=== PATIENT | male | born 1955 | race Caucasian/White ===

== ENCOUNTER → 2021-02-16 12:31 | Outpatient (REF) | payer BC, SELFPAY | LOC: ANHLAB 12:31 | PROVIDERS: PCP Internal Medicine; Visit Provider Nurse Practitioner | DX: C44.612 Basal cell carcinoma of skin of right upper limb, including shoulder (principal); C44.619 Basal cell carcinoma of skin of left upper limb, including shoulder | CPT/HCPCS: 88305 ==

== ENCOUNTER → 2021-05-01 09:03 | Outpatient (REF) | payer BC, SELFPAY | LOC: ANHLAB 09:03 | PROVIDERS: PCP Internal Medicine; Visit Provider Nurse Practitioner | DX: C44.612 Basal cell carcinoma of skin of right upper limb, including shoulder (principal) | CPT/HCPCS: 88305; 88331 ==

== ENCOUNTER → 2021-08-24 10:50 | Outpatient (REF) | payer BC, SELFPAY | LOC: ANHLAB 10:50 | PROVIDERS: PCP Internal Medicine; Visit Provider Nurse Practitioner | DX: L82.1 Other seborrheic keratosis (principal) | CPT/HCPCS: 88305 ==

== ENCOUNTER 2021-10-25 11:28 | Emergency (ER) | payer BC, SELFPAY ==
--- NOTE | 2021-10-25 11:36 | ED.WOUNDLAC ---
HPI - Wound/Laceration General Stated Complaint: laceration lt hand Time Seen by Provider: 10/25/21 11:48 Source: patient and RN notes reviewed Mode of arrival: ambulatory Limitations: no limitations History of Present Illness HPI narrative: 66-year-old male presents concern for a laceration to his left hand. 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 He denies any decrease sensation, strength, range of motion in the hand. He is not up-to-date on his tetanus shot. Extremity Location: Left: hand Related Data Allergies Allergy/AdvReac Type Severity Reaction Status Date / Time No Known Allergies Allergy Verified 10/25/21 12:16 Review of Systems Review of Systems: CONSTITUTIONAL: Denies malaise, chills, sweats, or fever. SKIN: Reports laceration to the left hand MUSCULOSKELETAL: Denies muscle skeletal pain NEUROLOGIC: Denies numbness, weakness All systems reviewed & are unremarkable except as noted in HPI and below PMFSH Past Medical History Medical History Dyslipidemia (high LDL; low HDL) Social History Social History Smoking status: Never smoker Second hand tobacco smoke exposure: No Alcohol intake: current Drinks per week: 2 Comments At time of signature, agree with nursing past medical, surgical, social and family history. There is no relevant family history pertinent to the presenting complaint Exam Narrative: GENERAL: Well-appearing, well-nourished, and in no acute distress. HEAD: Normocephalic EYES: PERRLA, conjunctivae clear NECK: Supple. CHEST: Speaks in full sentences. No respiratory distress. HEART: Regular rate and rhythm. Normal and equal peripheral pulses. EXTREMITIES: Left hand and digits of hand have normal strength and sensation. 5/5 strength with digit flexion, extension. Range of motion normal. No clubbing, cyanosis, or edema noted. No tenderness. Normal digital cascade with flexion of fingers, median, ulnar and radial nerve intact. Normal sensation of each side of finger. Can perform 'okay' sign, 'cross over finger test of index and middle fingers' and 'thumbs up' sign. No scissoring. Normal thumb opposition. Good capillary refill and radial pulse. Distal capillary refill less than 3 seconds. SKIN: Warn, dry, intact, pink. No rash. 2 cm linear laceration into the subcutaneous tissue without muscle involvement noted to the dorsal left hand between the first and second digits. NEURO: Alert and oriented x3. PSYCH: Normal mood and affect Course Course Emergency Course: Patient is aware of diagnosis, understands and agrees to treatment plan. Anticipatory guidance given. Patient agrees to follow-up as directed and is aware of reasons to seek care at the emergency department. Portions of this record may have been created with voice recognition software Level of Care: Express Care Visit Vital Signs Vital signs: Reviewed. Patient has history of hypertension Procedures Laceration Laceration 1: Date: 10/25/21 Time: 11:45 Site: hand Side (If applicable): left Size (cm): 2 Description: linear Depth: simple, single layer Local Anesthetic: lidocaine 1% Amount of anesthesia used (mL): 2 Pre-repair: wound explored and irrigated extensively ====== Skin Level ====== Skin layer closed with: nylon Size (cm): 4-0 Number of sutures: 5 Technique: simple, interrupted ====== Subcutaneous Layer ====== ====== Muscle Layer ====== ====== Tendon Layer ====== MDM - Wound/Laceration MDM Narrative Medical decision making narrative: Wound explored for foreign body and copious irrigation provided with no evidence of FB. Discussed the potential of retained foreign body with the patient and signs/symptoms that should prompt the pat
[2021-10-25 11:43] VITALS: BP 150/82; PULSE 116; RESP 18; TEMP 36.8; O2SAT 96
[2021-10-25] MEDS: TETANUS,DIPHTHERIA,AC PERTUSSIS ADULT (0.5 ML) BOOSTRIX IM (12:17)
== END 2021-10-25 12:23 | disposition home or self-care (01) ==
PROVIDERS: Emergency Provider Nurse Practitioner; PCP Internal Medicine
DX: S61.412A Laceration without foreign body of left hand, initial encounter (principal); W26.8XXA Contact with other sharp object(s), not elsewhere classified, initial encounter; Z23 Encounter for immunization; E78.5 Hyperlipidemia, unspecified
CPT/HCPCS: 12001; 90471; 90715; 99212; G0463

== ENCOUNTER 2023-09-11 11:56 | Outpatient (NON) | payer MEDICARE, SELFPAY | END 2023-09-11 11:57 | disposition home or self-care (01) | LOC: ANHLAB 12:01 | PROVIDERS: PCP Internal Medicine; Visit Provider Nurse Practitioner | DX: D22.62 Melanocytic nevi of left upper limb, including shoulder (principal) | CPT/HCPCS: 88305 ==

== ENCOUNTER 2024-06-17 08:22 | Emergency (ER) | payer MEDICARE, SELFPAY ==
--- NOTE | ~2024-06-17 | XR_ITS ---
EXAMINATION: XR forearm LT 2V DATE: 06/17/2024 09:37 INDICATION: Left forearm foreign body. TECHNIQUE: 2 views of left forearm on 3 radiographs were obtained. COMPARISON: None. FINDINGS: Alignment is normal. No fracture. There is mild osteoarthritis of first carpometacarpal brigette nt. No elbow joint effusion. IMPRESSION: 1. No radiopaque foreign body. Reviewed, dictated and finalized at location B.
[2024-06-17 08:33] VITALS: BP 143/81; PULSE 78; RESP 16; TEMP 36.7; O2SAT 99
[2024-06-17 08:36] VITALS: BP 143/81; PULSE 78; RESP 16; TEMP 36.7; O2SAT 99
--- NOTE | 2024-06-17 09:02 | ED.WOUNDLAC ---
HPI - Wound/Laceration General Chief Complaint: Wound/Laceration Stated Complaint: splinter in lt forearm Time Seen by Provider: 06/17/24 09:11 Source: patient Mode of arrival: ambulatory Limitations: no limitations History of Present Illness HPI narrative: 69-year-old male presented for complaint of a splinter in the left forearm sustained just prior to arrival. He states he was able to pull some of it out, but broke the end off and cannot access the remaining splinter. Tetanus was updated in the past 3 years. Denies pain or active bleeding. Related Data Allergies Allergy/AdvReac Type Severity Reaction Status Date / Time No Known Allergies Allergy Verified 06/17/24 08:36 Review of Systems Review of Systems: CONSTITUTIONAL: Denies body aches, fever, chills, or sweats. CARDIOVASCULAR: Denies chest pain, palpitations, or edema. RESPIRATORY: Denies cough or dyspnea. GASTROINTESTINAL: Denies abdominal pain, nausea, vomiting, or diarrhea. SKIN: per HPI MUSCULOSKELETAL: Denies back pain, joint pain, or myalgia. NEUROLOGIC: Denies headache, numbness, tingling, or weakness. [facility] Past Medical History Medical History Basal cell carcinoma Dyslipidemia (high LDL; low HDL) Essential hypertension History of COVID-19 Hypogonadism Social History Social History Smoking status: Never smoker Second hand tobacco smoke exposure: No Alcohol intake: current Drinks per week: 2 Alcohol use details: Socially on weekends Substance use: never Substance use type: does not use Living arrangements: with family Occupation/Education: occupation Additional occupation/education comments: Owns a [employer] Comments At time of signature, I have reviewed and agree with nursing past medical, surgical, social and family history unless otherwise noted. Please see nursing chart for further information. There is no relevant family history pertinent to the presenting complaint Exam Narrative: GENERAL: Well-appearing ENT: Mucous membranes moist. Oropharynx without edema, erythema or lesions. NECK: Supple. CHEST: Clear to auscultation. HEART: Regular rate and rhythm. SKIN: Warm, dry. Left forearm with subcutaneous firm FB approx 3cm length, extending from an open puncture wound <0.5cm. FB is not visible. Scant active bleeding. NEURO: Alert and oriented x3. Extrem: Elbow/forearm/wrist images: 1. location of FB Course Course Emergency Course: Patient is aware of diagnosis, understands and agrees to treatment plan. Anticipatory guidance given. Patient agrees to follow-up as directed and is aware of reasons to seek care at the emergency department. Portions of this record may have been created with voice recognition software Level of Care: Express Care Visit Vital Signs Vital signs: Vital Signs Temperature 98.0 F 06/17/24 08:33 Pulse Rate 78 06/17/24 08:33 Respiratory Rate 16 06/17/24 08:33 Blood Pressure 143/81 H 06/17/24 08:33 Pulse Oximetry 99 06/17/24 08:33 Oxygen Delivery Room Air 06/17/24 08:33 Temperature 98.0 F 06/17/24 08:36 Pulse Rate 78 06/17/24 08:36 Respiratory Rate 16 06/17/24 08:36 Blood Pressure 143/81 H 06/17/24 08:36 Pulse Oximetry 99 06/17/24 08:36 Oxygen Delivery Room Air 06/17/24 08:36 Reviewed Procedures Foreign Body Removal Foreign Body #1: Foreign Body Removal Date: 06/17/24 Site: left and upper extremity (forearm) Description of foreign body: other (wood/splinter) Technique: removal with forceps (tweezers ) Confirmed by:: radiograph, patient report and palpation Complications: none Neurovascular: normal distal pulse, normal capillary fill, distal light touch sensation intact, distal motor function normal and no change from pre-procedure Foreign Body Removal Narrative: The procedure and its alternatives were reviewed with patient. Risks were reviewed with patient including infection and damage to nearby structures. Patient provided verbal informed consent. The patient was positioned appropriately. Site cleansed. Local anesthesia achieved. Single straight Incision made to distal end of the insertion site. forceps used to removed 2.5cm linear wooden splinter. Pt tolerated the procedure well, no complications. Dressing applied AJIT and bandaid. MDM - Wound/Laceration MDM Narrative Medical decision making narrative: Discussed physical exam findings, soft tissue FB left forearm removed without difficulty. Pt tolerated well and confirmed removal via xray. Advised supportive measures and signs/symptoms to go to the ER. Pt is appropriate for outpt treatment and f/u. Differential Diagnosis Differential diagnosis: Likely laceration and other (foreign body, abrasion, avulsion) Imaging Data Radiologist's impression: Patient: Lul Avila : 1955 MR#: [id number] Age: 69 Acct:[id number] Loc: [facility] ADM Date: 06/17/24Attending Dr: Ordering Physician: Nory Tyalor APRN Date of Service: 06/17/24 Procedure(s): XR forearm LT 2V Accession Number(s): [id number] cc: Rosalio Lewis APN; Nory Taylor APRN~ EXAMINATION: XR forearm LT 2V DATE: 06/17/2024 09:37 INDICATION: Left forearm foreign body. TECHNIQUE: 2 views of left forearm on 3 radiographs were obtained. COMPARISON: None. FINDINGS: Alignment is normal. No fracture. There is mild osteoarthritis of first carpometacarpal joint. No elbow joint effusion. IMPRESSION: 1. No radiopaque foreign body. Discharge Plan Discharge Clinical Impression: Foreign body in skin Patient Disposition: Home, Self-Care Condition: Stable Instructions: Antibiotic Form, Soft Tissue Foreign Body (ED) Additional Instructions: Keep the area clean and dry - cleanse with warm water and mild soap and allow to fully dry. Apply the ointment as directed to the Change the dressing daily until you see a scab (about 3 days), you can leave it open to the air for few hours a day when not at risk for contamination Take antibiotic as directed Tylenol as needed for pain Watch for worsening symptoms including pain, redness, swelling, streaking, pus/drainage, fever. Go to the ER with any of these symptoms or concerns. Follow up with primary care provider in 1 week as needed Prescriptions: New cephalexin 500 mg capsule 500 mg PO Q8H 5 Days Qty: 15 0RF mupirocin 2 % ointment 1 applic topical BID 7 Days Qty: 22 0RF No Action lisinopril 40 mg tablet 40 mg PO DAILY Qty: 90 1RF rosuvastatin 20 mg tablet 20 mg PO DAILY Qty: 90 1RF testosterone [AndroGel] 20.25 mg/1.25 gram (1.62 %) gel in metered-dose pump 2 pump topical DAILY Qty: 225 1RF Rx Instructions: apply 1 pump amount over max area of EACH upper arm and shoulder Follow-up/Referrals: Rosalio Lewis APRN [Primary Care Provider] -
[2024-06-17] MEDS: LIDOCAINE HCL 1% LOCAL INJ 2 ML AMPUL 4 ML INFILTRATE (09:14)
== END 2024-06-17 10:04 | disposition home or self-care (01) ==
PROVIDERS: Emergency Provider Nurse Practitioner Family; PCP Nurse Practitioner
DX: S50.852A Superficial foreign body of left forearm, initial encounter (principal); W45.8XXA Other foreign body or object entering through skin, initial encounter; I10 Essential (primary) hypertension; E78.5 Hyperlipidemia, unspecified; Z85.828 Personal history of other malignant neoplasm of skin; Z86.16 Personal history of COVID-19
CPT/HCPCS: 10120; 73090; 99213; G0463; J2003